=== PATIENT | female | born 1985 ===

== ENCOUNTER 2018-02-10 04:20 | Inpatient (IN) | payer MEDICAID ==
[2018-02-10] MEDS ORDERED: Nalbuphine 20 MG/1 ML Amp IVPUSH PRN (08:24)
[2018-02-10] MEDS ORDERED: Lidocaine 1% 50 ML MDV INJECT ONE (08:24)
[2018-02-10] MEDS ORDERED: Ondansetron 4 MG/2 ML SDV IVPUSH PRN ×2 (08:24→20:30)
[2018-02-10] MEDS ORDERED: Sodium Chloride 0.9% 10 ML Syringe FLUSH PRN (08:24)
--- NOTE | 2018-02-10 08:53 | PCM.LDHP ---
L&D History of Present Illness - General Date of Service: 02/10/18 Admit Problem/Dx: Patient Status Order with Admit Dx/Problem 02/10/18 08:25 Patient Status [ADT] Routine Admission Diagnosis/Problem Admission Diagnosis/Problem Normal DATE OF ADMISSION: 02/10/2018 08:30 ADMISSION DIAGNOSES: A 39 and 1/7th week intrauterine , induction of labor, history of macrosomic baby HISTORY OF PRESENT ILLNESS: The patient is a 33 year old 4, para 3-0-0-3 female who was admitted at 39 and 1/7th weeks gestational age with an CECELIA of 02/16/2018 for elective induction of labor for distance from the hospital and history of macrosomia. She lives in [place], [place]. She has had 3 normal spontaneous vaginal deliveries in the past, with her first resulting in a 9 pound , 10 ounce baby. 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 She desires a natural labor at this time but is open to an epidural. 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 This patient has an CECELIA of 02/16/2018 based upon a certain LMP and a 13 week U/S dating done in [place], [place]. At the time of conception, she was not experiencing monthly menses and was on control. Ultrasound on 01/11/18 did note size greater than dates. PAST OBSTETRIC HISTORY: Includes the followin. Male born on 08/12/2009 at 40 weeks gestational age - 9 pounds, 10 ounces - via normal spontaneous vaginal delivery with epidural. Length of labor was 21 hours. Child's name is Arrow. 2. Female infant born on 08/15/2011 at 38 weeks gestational age - 8 pounds, 4 ounces - via normal spontaneous vaginal delivery with epidural. Length of labor was 12 hours. Child's name is Meghna. 3. Male born on 04/21/2014 at 38 weeks gestational age - 8 pounds, 0 ounces - via normal spontaneous vaginal delivery with an induction but without an epidural. Length of labor was 10-12 hours. Child's name is Daniel. This patient was first seen for care in [place], [place] on 2017 at 30 and 3/7ths weeks gestational age. Her previous care was in [place], [place] at the [facility], but less than optimal scheduling of obstetric care has been noted prior to establishing in [place]. Follow-up has been appropriate since that time. Her pregravid weight was 154 pounds and her last obstetric visit recorded weight at 183.4 pounds, with a total weight gain of 29.4 pounds. Her vitals remained stable throughout the course. Her fundal height growth has been appropriate. She is group B strep negative. She plans on doing a natural labor. She plans on . LABORATORY TESTING: Initial labs performed upon establishing care during early third trimester showed blood to be A positive with a negative antibody screen. Hemoglobin at first visit was 10.7 g/dL and platelets were 255,000. Rubella showed equivocal results and MMR is planned for after delivery. RPR is nonreactive. HIV assays were negative. Chlamydia and gonorrhea assays were both negative. Group B Strep screen was negative. ALLERGIES: No known drug allergies. CURRENT MEDICATIONS: 1. Oseltamivir Phosphate 75mg x1 capsule daily 2. vitamins x1 daily 3. Calcium 500/Vitamin D tablets x1 daily PAST MEDICAL HISTORY: 1. Vaginal delivery x3 2. History of depression with first child in 2010 3. History of anemia with second and third pregnancies 4. History of abnormal paps with HPV positive results 5. Bacterial vaginosis treated in July 2017 6. Partner with history of chlamydia PAST SURGICAL HISTORY: 1. Cholecystectomy in 2006 FAMILY HISTORY: Mother is alive and healthy. Father is alive with adult onset diabetes mellitus. One brother is alive and healthy. Three half-sisters alive with unknown health. MGM with unknown cause. PGM had cystic fibrosis. PGM , had adult onset diabetes mellitus. No history of bleeding, clotting, anesthesia, or problems in the family. SOCIAL HISTORY: The patient is not . Father of the baby is Greg Conti. She lives in [place], [place]. 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 She does not use alcohol, tobacco, or other drugs. REVIEW OF SYSTEMS: GENERAL: The patient is doing well. Baby has been active. No concerns noted. SKIN: Negative. CARDIOVASCULAR: No chest pain or exercise intolerance. RESPIRATORY: No shortness of breath or infectious symptoms. BREASTS: Changes associated with . GASTROINTESTINAL: Negative. GENITOURINARY: Changes associated with including increase in fundal height. MUSCULOSKELETAL: Negative. NEUROLOGIC: Negative. PHYSICAL EXAMINATION: GENERAL: Patient is well-developed, well-nourished female who appears of stated age. She is in no acute distress. VITAL SIGNS: Blood pressure on last evaluation in clinic was 102/58, weight was 183.4 pounds, and heart rate was 166 bpm. Pregravid weight was 154. SKIN: Warm and dry without lesions. LUNGS: Clear with good breath sounds in all lung doll. HEENT, NECK, BACK: Within normal limits. CARDIOVASCULAR: Shows regular rate and rhythm without murmurs. BREASTS: Deferred. ABDOMEN: Protuberant with . Fundal height of 42cm at last clinic appointment. Baby is in vertex presentation by Edward maneuvers. GENITAL: Shows cervix to be 2cm, 70% effaced, soft, -3 station, and mid position. EXTREMITIES: No significant edema. NEUROLOGIC: Grossly within normal limits. ASSESSMENT: 1. A 39 and 1/7th week intrauterine , desire for elective induction due to distance from hospital and history of macrosomic baby. 2. Group B Strep screen is negative. 3. The patient plans to breastfeed. 4. Rubella titer was equivocal. 5. The patient desires a natural labor. PLAN: 1. Pitocin induction of labor. Artificial induction of membranes once appropriate dilation has been reached. 2. Administer MMR after delivery. 3. Support decision to breastfeed. 4. Natural labor or pain control as desired by the patient. 02/10/18 09:04 - Related Data Allergies/Adverse Reactions: Allergies Allergy/AdvReac Type Severity Reaction Status Date / Time No Known Allergies Allergy Verified 02/10/18 08:30 Home Medications: Home Meds PNV95/Ferrous Fumarate/FA [ Tablet] 1 tab PO DAILY 02/10/18 [History] H&P Review of Systems - Review of Systems: Review Of Systems: See Below L&D Exam - Exam Exam: See Below - Patient Data Result Diagrams: 02/10/18 08:40 Problem List Initiated/Reviewed/Updated: Yes Orders Last 24hrs: Active Orders 24 hr Category Date Time Status Patient Status [ADT] Routine ADT 02/10/18 08:25 Active Activity as Tolerated [RC] PFP Care 02/10/18 08:25 Active Communication Order [RC] ASDIRECTED Care 02/10/18 08:25 Active Heart Tones [RC] ASDIRECTED Care 02/10/18 08:26 Active Notify Provider [RC] PFP Care 02/10/18 08:25 Active Notify Provider [RC] PRN Care 02/10/18 08:25 Active Peripheral IV Care [RC] . DIRECTED Care 02/10/18 08:26 Active Pump Management, Intrathecal [RC] ASDIRECTED Care 02/10/18 08:26 Active Vital Signs [RC] PER UNIT ROUTINE Care 02/10/18 08:25 Active Regular Diet [DIET] Diet 02/10/18 Breakfast Active CBC WITH AUTO DIFF [HEME] Stat Lab 02/10/18 08:24 Ordered Lactated Ringers [Ringers, Lactated] 1,000 ml Med 02/10/18 08:30 Ordered IV ASDIRECTED Lidocaine 1% [Xylocaine 1%] Med 02/10/18 08:24 Once 10 ml INJECT ONETIME ONE Nalbuphine [Nubain] Med 02/10/18 08:24 Ordered 10 mg IVPUSH Q2H PRN Ondansetron [Zofran] Med 02/10/18 08:24 Ordered 4 mg IVPUSH Q4H PRN Oxytocin/Lactated Ringers [Pitocin in LR 10 Units/1,000 Med 02/10/18 08:30 Ordered ML] 10 unit in 1,000 ml IV TITRATE Sodium Chloride 0.9% [Saline Flush] Med 02/10/18 08:24 Ordered 10 ml FLUSH ASDIRECTED PRN Electronic Heart Tones Ext w TOCO [WOMSER] Oth 02/10/18 08:25 Ordered Routine Electronic Heart Tones Internal [WOMSER] Per Unit Oth 02/10/18 08:25 Ordered Routine Peripheral IV Insertion Adult [OM.PC] Routine Oth 02/10/18 08:25 Ordered Resuscitation Status Routine Resus Stat 02/10/18 08:24 Ordered Medication Orders Lactated Ringer's (Ringers, Lactated) 1,000 mls @ 100 mls/hr IV ASDIRECTED RODRIGO Oxytocin/Lactated Ringer's (Pitocin In Lr 10 Units/1,000 Ml) 10 unit in 1,000 mls @ 12 mls/hr IV TITRATE RODRIGO; Protocol Lidocaine HCl (Xylocaine 1%) 10 ml INJECT ONETIME ONE Stop: 02/10/18 08:25 Nalbuphine HCl (Nubain) 10 mg IVPUSH Q2H PRN PRN Reason: Pain (moderate 4-6) Ondansetron HCl (Zofran) 4 mg IVPUSH Q4H PRN PRN Reason: Nausea/Vomiting Sodium Chloride (Saline Flush) 10 ml FLUSH ASDIRECTED PRN PRN Reason: Keep Vein Open
[2018-02-10] MEDS: Lactated Ringers 1,000 ML IV SCH ×4 (08:59→21:25)
[2018-02-10] MEDS: Oxytocin/Lactated Ringers 10 UNIT/1,000 ML BAG IV SCH (08:59)
[2018-02-10] MEDS ORDERED: Bupivacaine 0.25% 10 ML SDV ONE (20:00)
[2018-02-10] MEDS ORDERED: ePHEDrine 50 MG/ML SDV IVPUSH PRN (20:30)
[2018-02-10] MEDS ORDERED: diphenhydrAMINE 50 MG/ML SDV IVPUSH PRN (20:30)
[2018-02-10] MEDS ORDERED: Bupivacaine/fentaNYL/NS 100 ML Bag EPIDUR SCH (20:30)
[2018-02-10] MEDS ORDERED: fentaNYL 100 MCG/2 ML SDV EPIDUR PRN (20:30)
--- NOTE | 2018-02-10 21:13 | PCM.PREANE ---
Preanesthetic Assessment - Procedure Proposed Procedure: LEATHA - Anesthesia/Transfusion/Family Hx Anesthesia History: Prior Anesthesia Without Reaction Family History of Anesthesia Reaction: No Transfusion History: No Prior Transfusion(s) - Review of Systems General: No Symptoms Pulmonary: No Symptoms Cardiovascular: No Symptoms Gastrointestinal: No Symptoms Neurological: No Symptoms Other: Reports: None - Physical Assessment NPO Status Date: 02/10/18 NPO Status Time: 19:00 Respiratory Rate: 18 Vital Signs: Last Vital Signs Temp 36.2 C 02/10/18 08:25 Pulse 63 02/10/18 08:25 Resp 18 02/10/18 08:25 BP 106/62 02/10/18 08:25 Pulse Ox Height: 1.68 m Weight: 85.275 kg ASA Class: 2 Mental Status: Alert & Oriented x3 Airway Class: Mallampati = 1 Dentition: Reports: Normal Dentition Thyro-Mental Finger Breadths: 3 Mouth Opening Finger Breadths: 3 ROM/Head Extension: Full Lungs: Clear to Auscultation, Normal Respiratory Effort Cardiovascular: Regular Rate, Regular Rhythm - Lab Values: Laboratory Last Values WBC 6.95 K/mm3 (3.98-10.04) 02/10/18 08:40 RBC 4.07 M/mm3 (3.98-5.22) 02/10/18 08:40 Hgb 10.2 gm/L (11.2-15.7) L 02/10/18 08:40 Hct 33.2 % (34.1-44.9) L 02/10/18 08:40 MCV 81.6 fl (79.4-94.8) 02/10/18 08:40 MCH 25.1 pg (25.6-32.2) L 02/10/18 08:40 MCHC 30.7 g/dl (32.2-35.5) L 02/10/18 08:40 RDW Std Deviation 46.7 fL (36.4-46.3) H 02/10/18 08:40 Plt Count 226 K/mm3 (182-369) 02/10/18 08:40 MPV 11.0 fl (9.4-12.3) 02/10/18 08:40 Neut % (Auto) 73.1 % (34.0-71.1) H 02/10/18 08:40 Lymph % (Auto) 18.7 % (19.3-51.7) L 02/10/18 08:40 Winn % (Auto) 5.9 % (4.7-12.5) 02/10/18 08:40 Eos % (Auto) 1.6 (0.7-5.8) 02/10/18 08:40 Baso % (Auto) 0.3 % (0.1-1.2) 02/10/18 08:40 Neut # (Auto) 5.08 K/mm3 (1.56-6.13) 02/10/18 08:40 Lymph # (Auto) 1.30 K/mm3 (1.18-3.74) 02/10/18 08:40 Winn # (Auto) 0.41 K/mm3 (0.24-0.36) H 02/10/18 08:40 Eos # (Auto) 0.11 K/mm3 (0.04-0.36) 02/10/18 08:40 Baso # (Auto) 0.02 K/mm3 (0.01-0.08) 02/10/18 08:40 - Allergies Allergies/Adverse Reactions: Allergies Allergy/AdvReac Type Severity Reaction Status Date / Time No Known Allergies Allergy Verified 02/10/18 08:30 - Blood Blood Available: No Product(s) Available: None - Anesthesia Plan Pre-Op Medication Ordered: None - Acknowledgements Anesthesia Type Planned: Epidural Pt an Appropriate Candidate for the Planned Anesthesia: Yes Alternatives and Risks of Anesthesia Discussed w Pt/Guardian: Yes Pt/Guardian Understands and Agrees with Anesthesia Plan: Yes 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 History: history of bacterial vaginosis and HPV Psychiatric History: Reports: Depression Other Psychiatric History: post after first baby - SUBSTANCE USE Smoking Status *Q: Never Smoker Second Hand Smoke Exposure: No Recreational Drug Use History: No - HOME MEDS Home Medications: Home Meds PNV95/Ferrous Fumarate/FA [ Tablet] 1 tab PO DAILY 02/10/18 [History] - CURRENT (IN HOUSE) MEDS Current Meds: Current Medications Diphenhydramine HCl (Benadryl) 25 mg IVPUSH Q6H PRN PRN Reason: Pruritis Ephedrine Sulfate (Ephedrine Sulfate) 5 mg IVPUSH ASDIRECTED PRN PRN Reason: Hypotension Fentanyl (Sublimaze) 100 mcg EPIDUR Q3H PRN PRN Reason: Pain Last Admin: 02/10/18 20:55 Dose: 100 mcg Fentanyl/Bupivacaine HCl (Fentanyl/Bupivacaine/Ns 2 Mcg-0.125% 100 Ml) 100 ml EPIDUR ASDIRECTED RODRIGO Last Admin: 02/10/18 20:56 Dose: 100 ml Lactated Ringer's (Ringers, Lactated) 1,000 mls @ 100 mls/hr IV ASDIRECTED RODRIGO Last Admin: 02/10/18 08:59 Dose: 100 mls/hr Oxytocin/Lactated Ringer's (Pitocin In Lr 10 Units/1,000 Ml) 10 unit in 1,000 mls @ 12 mls/hr IV TITRATE RODRIGO; Protocol Last Titration: 02/10/18 18:00 Dose: 13 munits/min, 78 mls/hr Nalbuphine HCl (Nubain) 10 mg IVPUSH Q2H PRN PRN Reason: Pain (moderate 4-6) Ondansetron HCl (Zofran) 4 mg IVPUSH Q4H PRN PRN Reason: Nausea/Vomiting Ondansetron HCl (Zofran) 4 mg IVPUSH ONETIME PRN PRN Reason: Nausea/Vomiting Sodium Chloride (Saline Flush) 10 ml FLUSH ASDIRECTED PRN PRN Reason: Keep Vein Open Discontinued Medications Lidocaine HCl (Xylocaine 1%) 10 ml INJECT ONETIME ONE Stop: 02/10/18 08:25
[2018-02-10] MEDS ORDERED: Oxytocin/Lactated Ringers 10 UNIT/1,000 ML BAG IV SCH (21:30)
--- NOTE | 2018-02-10 23:15 | PCM.SN ---
- Free Text/Narrative Note: Delivery note: Ariana is a 33-year-old multigravida female who was admitted on the a.m. of 02/10/2018 for elective induction of labor at 39-1/7 weeks gestational age. She underwent Pitocin induction followed by artificial rupture membranes augmentation at about mid day. She progressed steadily to complete cervical dilation by approximately 2215 hrs. Shortly thereafter she began to push and at 2244 hrs. she delivered a viable, 4570 g (10 pounds 1.2 ounce) female with Apgars of 8 and 9 in an occiput anterior position. She delivered over an intact perineum. The baby delivered well and there is no evidence of shoulder dystocia. The umbilical cord was clamped 2 and cut by the baby's father. Baby was placed on mom's abdomen was dried and nose and mouth were bulb suctioned. Cord blood was obtained. The placenta then delivered in a Boss presentation, appeared intact and complete and was discarded per patient desire.The umbilical cord had 3 vessels. Cord blood was obtained per routine. The perineum was intact and required no suturing. Pitocin was administered after the delivery of the baby to facilitate increase uterine tone and decrease likelihood of bleeding. Estimated blood loss was 400 mL. Patient plans to breast-feed. Condition is good.
[2018-02-10] MEDS ORDERED: Docusate Sodium 100 MG Cap PO PRN (23:47)
[2018-02-10] MEDS ORDERED: Benzocaine/Menthol 20%-0.5% Spray 56 GM Canister TOP PRN (23:47)
[2018-02-10] MEDS ORDERED: Lanolin 100% Cream 7 GM Tube TOP PRN (23:47)
[2018-02-10] MEDS ORDERED: Witch Hazel Medicated Pads 100/Jar TOP PRN (23:47)
[2018-02-10] MEDS ORDERED: Acetaminophen 325 MG Tab PO PRN (23:47)
[2018-02-11] MEDS: Oxytocin/Lactated Ringers 10 UNIT/1,000 ML BAG IV SCH (00:10)
[2018-02-11] MEDS: Ibuprofen 600 MG Tab PO PRN ×3 (00:13→16:08)
--- NOTE | 2018-02-11 07:48 | PCM48HPAN ---
Post Anesthesia Note - EVALUATION WITHIN 48HRS OF ANESTHETIC Vital Signs in Normal Range: Yes Patient Participated in Evaluation: Yes Respiratory Function Stable: Yes Airway Patent: Yes Cardiovascular Function Stable: Yes Hydration Status Stable: Yes Pain Control Satisfactory: Yes Nausea and Vomiting Control Satisfactory: Yes Mental Status Recovered: Yes Pulse Rate: 64 Resp Rate: 16 Temperature: 98.1 F Blood Pressure: 101/43
[2018-02-11] MEDS: Prenatal Multivitamin with Calcium/Folic Acid/Iron Tab PO SCH (09:30)
[2018-02-11] MEDS ORDERED: Measles, Mumps & Rubella Vaccine 0.5 ML SDV SUBCUT ONE (11:00)
[2018-02-12] MEDS: Ibuprofen 600 MG Tab PO PRN (01:11)
--- NOTE | 2018-02-12 06:04 | PCM.DCSUM1 ---
Discharge Summary - Hospital Course Free Text/Narrative:: Ariana is a 33-year-old multigravida female who was admitted on the a.m. of 02/10/2018 for elective induction of labor at 39-1/7 weeks gestational age. She underwent Pitocin induction followed by artificial rupture membranes augmentation at about mid day. She progressed steadily to complete cervical dilation by approximately 2215 hrs. Shortly thereafter she began to push and at 2244 hrs. she delivered a viable, 4570 g (10 pounds 1.2 ounce) female infant with Apgars of 8 and 9 in an occiput anterior position. She delivered over an intact perineum. The baby delivered well and there is no evidence of shoulder dystocia. The umbilical cord was clamped 2 and cut by the baby's father. Baby was placed on mom's abdomen was dried and nose and mouth were bulb suctioned. Cord blood was obtained. The placenta then delivered in a Boss presentation, appeared intact and complete and was discarded per patient desire.The umbilical cord had 3 vessels. Cord blood was obtained per routine. The perineum was intact and required no suturing. Pitocin was administered after the delivery of the baby to facilitate increase uterine tone and decrease likelihood of bleeding. Estimated blood loss was 400 mL. Patient plans to breast-feed. Patient's period has been unremarkable. She did drop her hemoglobin to 8.3 but is doing well clinically with this. She will intended taking iron as she did prenatally but in a 2 time per day fashion along with her vitamins. She is ambulating well, voiding without problems, has minimal lochia, is nursing without concerns. She is desiring discharge home. - Discharge Data Discharge Date: 02/12/18 Discharge Disposition: Home, Self-Care 01 Condition: Good - Patient Instructions Diet: Regular Diet as Tolerated (Nursing diet was increased calories and calcium as recommended) Activity: As Tolerated (No intercourse or tampons until vaginal bleeding resulting) Driving: May Drive Today Showering/Bathing: May Shower (May take a bath) - Discharge Plan Prescriptions/Med Rec: Ferrous Sulfate 325 mg PO BID #100 tablet Home Medications: Home Meds PNV95/Ferrous Fumarate/FA [ Tablet] 1 tab PO DAILY 02/10/18 [History] Acetaminophen [Tylenol] 650 mg PO Q4H PRN tablet 02/12/18 [Rx] Ferrous Sulfate 325 mg PO BID #100 tablet 02/12/18 [Rx] Ibuprofen [IJD: Ibuprofen] 600 mg PO Q4H PRN tablet 02/12/18 [Rx] Referrals: Akira Beal MD [Primary Care Provider] - ([facility] in [place], [place]) - Discharge Summary/Plan Comment DC Time >30 min.: No Discharge Summary/Plan Comment: Discharge instructions: 1. Discharge home 2. Diet, activity and follow-up discussed with patient. Recommend nursing diet with increased calories and calcium. 3. Precautions given concern increased pain, bleeding, temperature, signs/ symptoms of DVT/PE. 4. Medications per home medication was printed, discussed with and given to the patient. 5. Return to clinic-Dr. Beal-[facility], [place] in 4 weeks. Diagnosis: Term -delivered Condition: Good - Patient Data Vitals - Most Recent: Last Vital Signs Temp 36.3 C 02/11/18 11:32 Pulse 75 02/11/18 11:32 Resp 20 02/11/18 11:32 BP 92/53 L 02/11/18 11:32 Pulse Ox 98 02/11/18 11:32 Weight - Most Recent: 85.275 kg Lab Results - Last 24 hrs: Laboratory Results - last 24 hr 02/11/18 Range/Units 06:35 WBC 9.07 (3.98-10.04) K/mm3 RBC 3.26 L (3.98-5.22) M/mm3 Hgb 8.3 L (11.2-15.7) gm/L Hct 26.6 L (34.1-44.9) % MCV 81.6 (79.4-94.8) fl MCH 25.5 L (25.6-32.2) pg MCHC 31.2 L (32.2-35.5) g/dl RDW Std Deviation 45.1 (36.4-46.3) fL Plt Count 207 (182-369) K/mm3 MPV 11.3 (9.4-12.3) fl Med Orders - Current: Current Medications Acetaminophen (Tylenol) 650 mg PO Q4H PRN PRN Reason: mild pain or fever Benzocaine/Menthol (Dermoplast Pain Relief [place]) 0 gm TOP ASDIRECTED PRN PRN Reason: Perineal Comfort Measure Last Admin: 02/11/18 00:12 Dose: 1 canister Docusate Sodium (Colace) 100 mg PO BID PRN PRN Reason: Constipation Emollient Ointment (Lansinoh Hpa) 0 gm TOP ASDIRECTED PRN PRN Reason: Sore Nipples Ibuprofen (Motrin) 600 mg PO Q4H PRN PRN Reason: Mild pain or fever Last Admin: 02/12/18 01:11 Dose: 600 mg Prenat Multivit/[place]/Iron/Folic Ac ( Plus Iron) 1 each PO DAILY RODRIGO Last Admin: 02/11/18 09:30 Dose: 1 each Witch Raven (Tucks) 1 pad TOP ASDIRECTED PRN PRN Reason: Hemorrhoid pain Last Admin: 02/11/18 00:12 Dose: 1 tub Discontinued Medications Bupivacaine HCl (Sensorcaine-Mpf 0.25%) 10 ml .ROUTE .[facility] ONE Stop: 02/10/18 20:01 Diphenhydramine HCl (Benadryl) 25 mg IVPUSH Q6H PRN PRN Reason: Pruritis Ephedrine Sulfate (Ephedrine Sulfate) 5 mg IVPUSH ASDIRECTED PRN PRN Reason: Hypotension Fentanyl (Sublimaze) 100 mcg EPIDUR Q3H PRN PRN Reason: Pain Last Admin: 02/10/18 20:55 Dose: 100 mcg Fentanyl/Bupivacaine HCl (Fentanyl/Bupivacaine/Ns 2 Mcg-0.125% 100 Ml) 100 ml EPIDUR ASDIRECTED RODRIGO Last Admin: 02/10/18 20:56 Dose: 100 ml Lactated Ringer's (Ringers, Lactated) 1,000 mls @ 100 mls/hr IV ASDIRECTED RODRIGO Last Admin: 02/10/18 21:25 Dose: 100 mls/hr Oxytocin/Lactated Ringer's (Pitocin In Lr 10 Units/1,000 Ml) 10 unit in 1,000 mls @ 12 mls/hr IV TITRATE RODRIGO; Protocol Last Admin: 02/11/18 00:10 Dose: 500 munits/min, 3,000 mls/hr Oxytocin/Lactated Ringer's (Pitocin In Lr 10 Units/1,000 Ml) 10 unit in 1,000 mls @ 500 mls/hr IV TITRATE RODRIGO; Protocol Lidocaine HCl (Xylocaine 1%) 10 ml INJECT ONETIME ONE Stop: 02/10/18 08:25 Last Admin: 02/11/18 08:57 Dose: Not Given Measles/Mumps/Rubella Vaccine Live (M-M-R Ii Vaccine) 0.5 ml SUBCUT .ONCE ONE Stop: 02/11/18 11:01 Last Admin: 02/11/18 11:29 Dose: 0.5 ml Nalbuphine HCl (Nubain) 10 mg IVPUSH Q2H PRN PRN Reason: Pain (moderate 4-6) Ondansetron HCl (Zofran) 4 mg IVPUSH Q4H PRN PRN Reason: Nausea/Vomiting Ondansetron HCl (Zofran) 4 mg IVPUSH ONETIME PRN PRN Reason: Nausea/Vomiting Sodium Chloride (Saline Flush) 10 ml FLUSH ASDIRECTED PRN PRN Reason: Keep Vein Open
[2018-02-12] MEDS: Prenatal Multivitamin with Calcium/Folic Acid/Iron Tab PO SCH (11:26)
== END 2018-02-12 10:00 | disposition home or self-care (01) | DRG 775 ==
LOC: JD.OB 07:25 → OBSVTOIN 22:44
PROVIDERS: ADMIT Obstetrics & Gynecology; ATTEND Obstetrics & Gynecology
PROC: 10E0XZZ Delivery of Products of Conception, External Approach (ICD-10-PCS; principal; 2018-02-10)
PROC: 3E033VJ Introduction of Other Hormone into Peripheral Vein, Percutaneous Approach (ICD-10-PCS; 2018-02-10)
PROC: 10907ZC Drainage of Amniotic Fluid, Therapeutic from Products of Conception, Via Natural or Artificial Opening (ICD-10-PCS; 2018-02-10)
PROC: 6A550ZT Pheresis of Cord Blood Stem Cells, Single (ICD-10-PCS; 2018-02-10)
PROC: 00HU33Z Insertion of Infusion Device into Spinal Canal, Percutaneous Approach (ICD-10-PCS; 2018-02-10)
PROC: 3E0R3BZ Introduction of Anesthetic Agent into Spinal Canal, Percutaneous Approach (ICD-10-PCS; 2018-02-10)
DX: O80 Encounter for full-term uncomplicated delivery (principal); Z37.0 Single live birth; Z3A.39 39 weeks gestation of pregnancy; Z90.49 Acquired absence of other specified parts of digestive tract
CPT/HCPCS: 01967; 36415; 51701; 59025; 59409; 85025; 85027; 90471; 90707; A9270-GY; J2590; J3010; J7120